=== PATIENT | male | born 1970 | race Caucasian/White ===

== ENCOUNTER 2023-07-25 10:00 | Outpatient (CLI) | payer OTHER, SELFPAY ==
--- NOTE | 2023-07-25 06:00 | DI.RAD_ITS ---
Exam(s) XR PAIN CLINIC LUMBAR SP 2V EXAM: XR PAIN CLINIC LUMBAR SP 2V CLINICAL HISTORY: DX: Lumbar spondylosis TECHNIQUE: 2D and realtime digital imaging was performed. CONTRAST MATERIAL: Refer to procedure report. COMPARISON: No exams were available for comparison FINDINGS: Fluoroscopy was provided for Dr. Phillips during the performance of a lumbar medial branch block. Myriam rao refer to the procedure report for complete details. Ka,r=21.2 mGy IMPRESSION: RADIATION DOSE DELIVERED: 0.0 0.0 0
[2023-07-25 10:07] VITALS: BP 187/106; PULSE 75; RESP 20; TEMP 36.7; O2SAT 99
--- NOTE | 2023-07-25 10:40 | PDOC.PAIN ---
Date of service: 07/25/23 Time of Service: 10:40 Pain Managment Procedure Note Procedure Note Procedure Note: PROCEDURE NOTE Bilateral Lumbar Medial Branch Blocks Date of Service: July 25, 2023 Patient: RONNY FOX Provider: Heike Phillips DO, MPH RONNYPITA FOX has been [facility] for lumbar medial branch blocks. Pre-operative diagnosis: Lumbar Spondylosis without Myelopathy Post-operative diagnosis: Same Pre-procedure pain: VAS= 8/10 COMMENTS: I previously evaluated the patient in the office. His symptoms are unchanged. SAVANNAH was interviewed and the medical records were reviewed. There were no medical, pharmacologic, radiographic or other structural contraindications to attempting fluoroscopically guided local anesthetic lumbar medial branch blocks. Risks and potential side effects were discussed. I also discussed the potential benefit(s) of the procedure with RONNY, and voiced concerns were addressed. After RONNY was completely informed about the procedure, the printed consent form was signed. A standard time-out procedure was performed. RONNY was placed in the prone position on the fluoroscopy table. Automated blood pressure cuff and pulse oximeter were applied. The skin entry points for approaching the anatomic target points of the segmental medial branches of bilateral L3,L4,L5 were identified with fluoroscopy and marked. The skin at the target site area was thoroughly prepared with Chlorhexadine. The skin was then draped. Next, a 25 gauge 3.5 spinal needle was placed under fluoroscopic guidance down on to the target point (the articular pillar) for each respective segmental medial branch. Position was confirmed in A/P and lateral views. Aspiration revealed no blood or clear fluid. Next, 0.25ml of omnipaque 240 was injected at each level. No contrast following a vascular or neural pattern was visualized under continuous fluoroscopy. Next, 0.25 ml of preservative-free 0.5% bupivicaine was injected at each level. There was no unusual discomfort expressed by RONNY. The needles were withdrawn without difficulty. (49 mls of Omnipaque was wasted) RONNY was observed and was without hemodynamic, neurologic, or allergic reactions.? Fluoroscopic images were digitally archived. Provacative testing using the Modified Benavides's facet loading test- Left side Right Side Directly before the block VAS (0-10) = 8/10 VAS (0-10) = 8/10 Five minutes after the block VAS (0-10) = 5/10 VAS (0-10) = 5/10 Percentage relief obtained with this diagnostic block 50% 50% Any improved physical functioning directly after the blocks? Able to move his back with ease. Follow up plans and appointments were discussed with RONNY. RONNY was instructed to keep careful note of how the usual pain was modified by these injections. Specifically, to keep a pain diary for the next 4 hours using a numeric pain scale of 0-10 and report these results. Post procedure instruction was given as documented in the nursing documentation and having met discharge criteria, the patient was [facility]. Based on the medial branches blocked today, if they patient has adequate relief and we are able to proceed to radiofrequency ablation, the treatment should result in the denervation of the bilateral L4-L5 and L5-S1 facet joints. We would expect to denervate a total of 4 facets during the radiofrequency ablation. COMMENTS: No apparent complications. Post-procedure pain: VAS= 5/10 RONNY will call back with 0-4 hour post-procedure pain scores. I personally performed the entire procedure. HEIKE PHILLIPS DO, MPH ABPM&R-subspecialty board certification in Pain Medicine [facility]
[2023-07-25 10:50] VITALS: BP 181/98; PULSE 80; RESP 18; O2SAT 96
[2023-07-25] MEDS: Omnipaque 240 MG/ML 50 ML BTL IJ (10:51)
[2023-07-25] MEDS: Bupivacaine 0.5% Pres-Free 10 ML VIAL IJ (10:51)
[2023-07-25] MEDS: Nerve Block Tray 1 EACH MC (10:51)
== END 2023-07-25 10:01 | disposition home or self-care (01) ==
LOC: PC 10:00
PROVIDERS: PCP Registered Nurse; Visit Provider Preventive Medicine Occupational Medicine
DX: M47.816 Spondylosis without myelopathy or radiculopathy, lumbar region (principal)
CPT/HCPCS: 64493; 64494; 72100; J0665; Q9967